=== PATIENT | female | born 1990 | race Caucasian/White ===

== ENCOUNTER 2021-09-18 04:31 | Emergency (ER) | payer OTHER ==
[2021-09-18] MEDS ORDERED: Morphine 4 MG/ML VIAL ONE (05:17)
[2021-09-18] MEDS ORDERED: Ondansetron PF 4 MG/2 ML Vial ONE (05:17)
[2021-09-18 05:32] LABS: #Basophils 0.1 thou/uL (0.0-0.2); #Lymphocytes 2.8 thou/uL (1.20-3.40); #Monocytes 0.7 thou/uL (0.11-0.59); #Neutrophils 7.9 thou/uL (1.40-6.50); %Basophils 0.7 % (0.0-1.0); %Eosinophils 0.1 % (0.0-10.0); %Lymphocytes 24.1 % (21.0-51.0); %Monocytes 6.4 % (0.0-10.0); %Neutrophils 68.8 % (42.0-75.0); Hemoglobin 13.3 g/dL (12.0-16.0); Mean Corpuscular HGB CONC 33.9 g/dL (32.0-36.0); Mean Corpuscular Hemoglobin 28.8 pg (27.0-31.0); Mean Corpuscular Volume 84.9 fL (78.0-98.0); Mean Platelet Volume 8.2 fL (7.4-10.4); Platelet Count 271 thou/uL (130-400); RBC Distribution Width 11.6 % (11.5-14.5); Red Blood Cell (RBC) Count 4.63 mill/uL (4.20-5.40); White Blood Cell (WBC) Count 11.5 thou/uL (4.8-10.8)
[2021-09-18 05:39] LABS: BHCG - Serum Negative (NEGATIVE); Pregs Control Background? CLEAR/WHITE (CLR/WHITE); Pregs Control Bar Appear? YES (CONTROL BAR)
[2021-09-18 05:52] LABS: ALT (SGPT) 25 U/L (8-55); AST (SGOT) 14 U/L (5-34); Albumin 3.8 g/dL (3.5-5.0); Alkaline Phosphatase 55 U/L (40-110); Anion Gap 17 mmol/L (10-20); BUN (Urea Nitrogen) 11 mg/dL (7.0-18.7); Bilirubin, Total 0.2 mg/dL (0.2-1.2); Calc. Creatinine Clearance 0 mL/min (70-130); Calcium 9.3 mg/dL (7.8-10.44); Carbon Dioxide 23 mmol/L (22-29); Chloride 104 mmol/L (98-107); Globulin 3.3 g/dL (2.4-3.5); Glucose 112 mg/dL (70-105); Lipase 27 U/L (8-78); Potassium 4.6 mmol/L (3.5-5.1); Protein, Total 7.1 g/dL (6.0-8.3); Sodium 139 mmol/L (136-145)
[2021-09-18 06:32] LABS: Bilirubin Negative (Negative); Blood, Urine Negative (Negative); Clarity Clear (Clear); Glucose, Urine (Dipstick) Normal (Negative); Ketone, Urine Trace mg/dL (Negative); Leukocyte Negative Leu/uL (Negative); Nitrite Negative (Negative); Protein, Urine (Dipstick) 20 mg/dL (Neg-Trace); Specific Gravity, Urine 1.028 (1.002-1.036); Urobilinogen Normal mg/dL (Less than 2)
== END 2021-09-18 06:53 | disposition home or self-care (01) ==
LOC: ERS 04:31
DX: K80.20 Calculus of gallbladder without cholecystitis without obstruction (principal)
CPT/HCPCS: 76705; 80053; 81003; 83690; 84703; 85025; 87086; J2270; J2405

== ENCOUNTER 2021-10-27 09:23 | Outpatient (CLI) | payer OTHER ==
[2021-10-27 09:58] LABS: #Monocytes 0.5 10x3/uL (0.0-1.1); #Neutrophils 4.7 10x3/uL (1.5-8.4); %Basophils 0.4 % (0.0-2.0); %Lymphocytes 31.2 % (18.0-47.0); %Neutrophils 61.3 % (40.0-75.0); Mean Corpuscular HGB CONC 31.6 g/dL (32.0-36.0); Mean Corpuscular Hemoglobin 27.6 pg (27.0-33.0); Mean Corpuscular Volume 87.4 fl (81.6-98.3); Mean Platelet Volume 10.4 fl (7.4-10.4); Platelet Count 281 10x3/uL (150-450); RBC Distribution Width 12.7 % (11.5-14.5); Red Blood Cell (RBC) Count 4.35 10x6/uL (3.90-5.03); White Blood Cell (WBC) Count 7.7 10x3/uL (3.5-10.5)
[2021-10-27 10:38] LABS: BHCG - Serum Negative (NEGATIVE); Pregs Control Background? CLEAR/WHITE (CLR/WHITE); Pregs Control Bar Appear? YES (CONTROL BAR)
[2021-10-27 10:45] LABS: ALT (SGPT) 22 U/L (8-55); AST (SGOT) 13 U/L (5-34); Albumin 3.8 g/dL (3.5-5.0); Alkaline Phosphatase 52 U/L (40-110); Anion Gap 11 mmol/L (10-20); BUN (Urea Nitrogen) 10 mg/dL (7.0-18.7); Bilirubin, Direct 0.1 mg/dL (0.1-0.3); Bilirubin, Total 0.2 mg/dL (0.2-1.2); Calc. Creatinine Clearance 0 mL/min (70-130); Calcium 8.6 mg/dL (7.8-10.44); Carbon Dioxide 23 mmol/L (22-29); Chloride 108 mmol/L (98-107); Glucose 96 mg/dL (70-105); Potassium 4.1 mmol/L (3.5-5.1); Protein, Total 6.8 g/dL (6.0-8.3); Sodium 138 mmol/L (136-145)
[2021-10-27 17:34] LABS: SARS-CoV-2 PCR by NAA Not Detected (NotDetected)
== END 2021-10-27 09:24 | disposition home or self-care (01) ==
LOC: LABBT 09:23
PROVIDERS: ATTEND Surgery
DX: Z01.812 Encounter for preprocedural laboratory examination (principal); K80.20 Calculus of gallbladder without cholecystitis without obstruction; Z20.822 Contact with and (suspected) exposure to COVID-19
CPT/HCPCS: 80048; 80076; 84703; 85025; U0003; U0005

== ENCOUNTER 2021-11-01 08:25 | Day surgery (SDC) | payer OTHER ==
[2021-10-30 13:39] VITALS: BMI 38.0
[2021-11-01] MEDS ORDERED: Lidocaine 1% w/Epinephrine 1:100K 20 ML VIAL ONE (09:26)
[2021-11-01] MEDS ORDERED: Bupivacaine 0.25% 10 ML VIAL ONE (09:26)
[2021-11-01] MEDS ORDERED: cefOXitin Sodium/Dextrose 2 GM/50 ML BAG ONE (09:34)
[2021-11-01] MEDS ORDERED: Midazolam HCl 2 mg/2 ml Vial ONE (09:34)
[2021-11-01] MEDS ORDERED: Fentanyl 100 MCG/2 ML VIAL ONE (09:41)
[2021-11-01] MEDS ORDERED: SUGAMMADEX SODIUM 200 MG/2 ML VIAL ONE (09:41)
[2021-11-01] MEDS ORDERED: HYDROmorphone 2 MG/ML VIAL ONE (09:41)
[2021-11-01] MEDS ORDERED: Sodium Chloride 0.9% 20 ML ONE (09:41)
[2021-11-01] MEDS ORDERED: Ondansetron PF 4 MG/2 ML Vial ONE ×2 (10:14→11:22)
[2021-11-01] MEDS ORDERED: Metoclopramide HCl 10 MG/2 ML VIAL ONE (10:14)
[2021-11-01] MEDS ORDERED: Dexamethasone 20 MG/5 ML VIAL ONE (10:14)
[2021-11-01] MEDS ORDERED: Ketorolac Tromethamine 30 MG/ML VIAL ONE (10:14)
[2021-11-01] MEDS ORDERED: ePHEDrine 50 MG/ML VIAL ONE (10:14)
[2021-11-01] MEDS ORDERED: PROPOFOL 200 MG/20 ML VIAL ONE (10:14)
[2021-11-01] MEDS ORDERED: Lidocaine 1% PF 5 ML VIAL ONE (10:14)
[2021-11-01] MEDS ORDERED: Glycopyrrolate 0.2 MG/ML 5 ML SYRINGE ONE (10:14)
[2021-11-01] MEDS ORDERED: HYDROcodone/Acetaminophen 5/325 mg Tablet ONE (12:46)
== END 2021-11-01 13:30 | disposition home or self-care (01) ==
LOC: SDC 08:25
PROVIDERS: ATTEND Surgery
PROC: 0FT44ZZ Resection of Gallbladder, Percutaneous Endoscopic Approach (ICD-10-PCS; principal; 2021-11-01)
DX: K80.10 Calculus of gallbladder with chronic cholecystitis without obstruction (principal); Z79.899 Other long term (current) drug therapy
CPT/HCPCS: 88304; C1713; J0694; J1100; J1170; J1885; J2250; J2405; J2704; J2765; J3010; J3490; S0020

== ENCOUNTER 2022-08-14 15:15 | Outpatient (CLI) | payer BC | END 2022-08-14 15:16 | disposition home or self-care (01) | LOC: SCSRAD 15:15 | PROVIDERS: ATTEND Nurse Practitioner Family | DX: M54.50 Low back pain, unspecified (principal); Z90.49 Acquired absence of other specified parts of digestive tract | CPT/HCPCS: 72100 ==